=== PATIENT | female | born 1950 | race Caucasian/White ===

== ENCOUNTER 2024-02-27 11:30 | Emergency (ER) | payer BC, MEDICAID ==
[~2024-02-27] VITALS: Ht 157.5 cm; Wt 75.6 kg
[~2024-02-27 11:30] MED LIST: ACET-3209 PO; CYCL-1 PO; HYDR-3194 PO; PER5325T PO; PROM25TA14 PO
[2024-02-27 12:31] LABS: BASOPHILS % (AUTO) 0.1 % (0-1); EOSINOPHILS % (AUTO) 0.4 % (0-6); HEMATOCRIT 36.5 % (35.0-45.0); HEMOGLOBIN 11.9 g/dl (12.0-16.0); LYMPHOCYTES # (AUTO) 1.1 X10'3 (1.1-4.8); LYMPHOCYTES % (AUTO) 10.6 % (21-51); MEAN CORPUSCULAR HEMOGLOBIN 28.5 PG (27.0-31.0); MEAN CORPUSCULAR HGB CONC 32.5 g/dL (33.0-36.5); MEAN CORPUSCULAR VOLUME 87.6 FL (78-98); MEAN PLATELET VOLUME 9.5 FL (7.4-10.4); MONOCYTES # (AUTO) 0.7 X10'3 (0-0.9); MONOCYTES % (AUTO) 6.6 % (2-12); NEUTROPHILS # (AUTO) 8.4 X10'3 (1.8-7.7); NEUTROPHILS % (AUTO) 82.3 % (42-75); PLATELET COUNT 265 X10'3 (140-440); RED BLOOD COUNT 4.17 X10'6 (4.20-5.60); RED CELL DISTRIBUTION WIDTH 16.3 % (11.5-14.5); WHITE BLOOD COUNT 10.2 X10'3 (4.5-11.0)
[2024-02-27 12:56] LABS: ALBUMIN 3.4 G/DL (3.4-5.0); ANION GAP 9 (8-16); BLOOD UREA NITROGEN 11 MG/DL (7-18); BUN/CREATININE RATIO 9.4 (10.0-20.0); CALCIUM 8.7 MG/DL (8.5-10.1); CHLORIDE 99 MMOL/L (99-107); CREATININE 1.17 MG/DL (0.40-0.90); GLUCOSE 121 MG/DL (70-104); PRO BRAIN NATRIURETIC PEPTIDE 380 PG/ML (0-125); SODIUM 132 MMOL/L (135-145); TOTAL CARBON DIOXIDE 23.8 MMOL/L (24-32); eCRCL 33 ML/MIN; eGFR 45 ML/MIN
[2024-02-27 14:03] VITALS: TEMP 98.7
[2024-02-27] MEDS: albuterol 2.5 MG/3 ML nebule NEB ONE (14:25)
[2024-02-27 16:07] VITALS: PULSE 97; PULSE 98; RESP 20; RESP 22; O2SAT 98
[2024-02-27] MEDS ORDERED: METH4TAB81 PO (16:40)
[2024-02-27] MEDS ORDERED: GUAI1TBM19 PO (16:40)
[2024-02-27 16:45] VITALS: BP 137/82; PULSE 93; RESP 16; O2SAT 97
== END 2024-02-27 16:48 | disposition home or self-care (01) ==
LOC: ER 11:31
DX: J44.1 Chronic obstructive pulmonary disease with (acute) exacerbation (principal); E78.00 Pure hypercholesterolemia, unspecified; M19.90 Unspecified osteoarthritis, unspecified site; G89.29 Other chronic pain; M54.9 Dorsalgia, unspecified; G43.909 Migraine, unspecified, not intractable, without status migrainosus; Z86.73 Personal history of transient ischemic attack (TIA), and cerebral infarction without residual deficits; Z87.891 Personal history of nicotine dependence; Z90.710 Acquired absence of both cervix and uterus; Z90.49 Acquired absence of other specified parts of digestive tract; Z20.822 Contact with and (suspected) exposure to COVID-19; Z88.8 Allergy status to other drugs, medicaments and biological substances; Z79.1 Long term (current) use of non-steroidal anti-inflammatories (NSAID)
CPT/HCPCS: 36415; 71046; 80048; 83605; 83880; 84484; 85025; 87040; 87502; 87503; 87811; 93005; 94640; 94760; 99285

== ENCOUNTER 2024-04-17 13:43 | Emergency (ER) | payer BC, MEDICAID ==
[~2024-04-17] VITALS: Ht 157.5 cm; Wt 75.0 kg
[~2024-04-17 13:43] MED LIST changes: +GUAI1TBM19 PO; +METH4TAB81 PO
[2024-04-17 14:01] VITALS: BP 126/101; PULSE 78; TEMP 97.8; O2SAT 96
[2024-04-17] MEDS ORDERED: LIDO700A32 TOP (16:00)
[2024-04-17 16:21] VITALS: RESP 16
[2024-04-17] MEDS: morphine 4 MG/ML inj SYRINge IM ONE (16:21)
== END 2024-04-17 16:26 | disposition home or self-care (01) ==
LOC: ER 13:44
DX: S46.912A Strain of unspecified muscle, fascia and tendon at shoulder and upper arm level, left arm, initial encounter (principal); M77.8 Other enthesopathies, not elsewhere classified; E78.00 Pure hypercholesterolemia, unspecified; J44.9 Chronic obstructive pulmonary disease, unspecified; M19.90 Unspecified osteoarthritis, unspecified site; G43.909 Migraine, unspecified, not intractable, without status migrainosus; G89.29 Other chronic pain; M54.9 Dorsalgia, unspecified; Z90.710 Acquired absence of both cervix and uterus; Z90.49 Acquired absence of other specified parts of digestive tract; Z86.73 Personal history of transient ischemic attack (TIA), and cerebral infarction without residual deficits; Z88.6 Allergy status to analgesic agent; Z88.8 Allergy status to other drugs, medicaments and biological substances; Z79.1 Long term (current) use of non-steroidal anti-inflammatories (NSAID); Z79.899 Other long term (current) drug therapy; Z98.890 Other specified postprocedural states; X58.XXXA Exposure to other specified factors, initial encounter; Y93.89 Activity, other specified; Y92.89 Other specified places as the place of occurrence of the external cause; Y99.8 Other external cause status
CPT/HCPCS: 73030; 96372; 99283; J2270

== ENCOUNTER 2024-07-19 05:56 | Emergency (ER) | payer BC, MEDICAID ==
[~2024-07-19] VITALS: Ht 157.5 cm; Wt 76.1 kg
[~2024-07-19 05:56] MED LIST changes: +LIDO700A32 TOP
[2024-07-19 05:58] VITALS: TEMP 97.6
[2024-07-19 06:53] LABS: BASOPHILS % (AUTO) 0.3 % (0-1); EOSINOPHILS # (AUTO) 0.2 X10'3 (0-0.9); EOSINOPHILS % (AUTO) 2.4 % (0-6); HEMATOCRIT 35.1 % (35.0-45.0); HEMOGLOBIN 11.9 g/dl (12.0-16.0); LYMPHOCYTES % (AUTO) 25.5 % (21-51); MEAN CORPUSCULAR HEMOGLOBIN 29.7 PG (27.0-31.0); MEAN CORPUSCULAR HGB CONC 33.9 g/dL (33.0-36.5); MEAN CORPUSCULAR VOLUME 87.4 FL (78-98); MEAN PLATELET VOLUME 9.2 FL (7.4-10.4); MONOCYTES # (AUTO) 0.7 X10'3 (0-0.9); MONOCYTES % (AUTO) 9.1 % (2-12); NEUTROPHILS # (AUTO) 4.9 X10'3 (1.8-7.7); NEUTROPHILS % (AUTO) 62.7 % (42-75); PLATELET COUNT 261 X10'3 (140-440); RED BLOOD COUNT 4.01 X10'6 (4.20-5.60); RED CELL DISTRIBUTION WIDTH 16.2 % (11.5-14.5); WHITE BLOOD COUNT 7.9 X10'3 (4.5-11.0)
[2024-07-19 07:03] LABS: BILIRUBIN,URINE NEGATIVE (Neg); CLARITY,URINE CLEAR (Clear); COLOR,URINE YELLOW (Yellow); GLUCOSE, URINE NEGATIVE (Neg); KETONES,URINE NEGATIVE (Neg); LEUKOCYTE ESTERASE ,URINE NEGATIVE (Neg); NITRITES, URINE NEGATIVE (Neg); OCCULT BLOOD,URINE NEGATIVE (Neg); PROTEIN,URINE NEGATIVE (Neg); UROBILINOGEN,URINE 0.2 E.U/dL (0.2-1.0)
[2024-07-19 07:10] LABS: ALANINE AMINOTRANSFERASE 15 U/L (12-78); ALBUMIN 3.2 G/DL (3.4-5.0); ALBUMIN/GLOBULIN RATIO 0.9 (1.1-1.5); ALKALINE PHOSPHATASE 77 IU/L (46-116); ANION GAP 6 (8-16); ASPARTATE AMINO TRANSFERASE 15 U/L (10-37); BILIRUBIN,TOTAL 0.5 MG/DL (0.1-1.0); BLOOD UREA NITROGEN 12 MG/DL (7-18); BUN/CREATININE RATIO 10.6 (10.0-20.0); CALCIUM 8.7 MG/DL (8.5-10.1); CHLORIDE 103 MMOL/L (99-107); CREATININE 1.13 MG/DL (0.40-0.90); GLUCOSE 91 MG/DL (70-104); POTASSIUM 4.4 MMOL/L (3.5-5.1); SODIUM 136 MMOL/L (135-145); TOTAL CARBON DIOXIDE 26.9 MMOL/L (24-32); TOTAL PROTEIN 6.6 G/DL (6.4-8.2); eCRCL 35 ML/MIN; eGFR 47 ML/MIN
--- NOTE | 2024-07-19 07:17 | RADIOLOGY REPORT ---
EXAM: CT Abdomen and Pelvis Without Intravenous Contrast CLINICAL INDICATION: R flank pain TECHNIQUE: Axial computed tomography images of the abdomen and pelvis without intravenous contrast. This CT exam was performed using one or more of the following dose reduction techniques: automated exposure control, adjustment of the mA and/or kV according to patient size, and/or use of iterative r econstruction technique. CONTRAST: COMPARISON: None FINDINGS: LUNG BASES: Unremarkable. No mass. No consolidation. MEDIASTINUM: Moderate esophageal hiatal hernia. ABDOMEN: LIVER: Hepatic cysts. GALLBLADDER AND BILE DUCTS: Unremarkable. No calcified stones. No ductal dilation. PANCREAS: Unremarkable. No ductal dilation. SPLEEN: Unremarkable. No splenomegaly. ADRENALS: Unremarkable. No mass. KIDNEYS AND URETERS: Right nephrectomy. STOMACH AND BOWEL: Fecal retention in the colon consistent with constipation. No obstruction. No mucosal thickening. PELVIS: APPENDIX: No findings to suggest acute appendicitis. BLADDER: Unremarkable. No stones. REPRODUCTIVE: Unremarkable as visualized. ABDOMEN and PELVIS: INTRAPERITONEAL SPACE: Unremarkable. No free air. No significant fluid collection. BONES/JOINTS: Status post posterior fusion of L2 to S1. 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 Degenerative facet arthropathy throughout the lumbar spine, most prominent in the lower lumbar spine. No acute fracture. No dislocation. SOFT TISSUES: Umbilical hernia containing fat. VASCULATURE: Unremarkable. No abdominal aortic aneurysm. LYMPH NODES: Unremarkable. No enlarged lymph nodes. OTHER FINDINGS: . . . IMPRESSION: 1. Moderate esophageal hiatal hernia. 2. Fecal retention in the colon consistent with constipation. 3. Umbilical hernia containing fat. 4. Degenerative changes lumbar spine as described.
[2024-07-19 07:24] LABS: UA COLLECTION TYPE NON-SPECIFIED
--- NOTE | 2024-07-19 07:33 | Physician Documentation ---
History of Present Illness Chief Complaint: Flank Pain Stated Complaint: FLANK PAIN Time Seen by MD: 06:00 [facility] 73 [facility] with R Flank and RLQ pain that started this morning. She denies fevers, N/V/D. She reports a history of a kidney tumor with nephrostomy but she cannot remember which kidney was removed. She reports recent constipation for several days. Denies urinary symptoms. Medication Reconciliation Allergies: Coded Allergies: propoxyphene HCl (Verified Allergy, Intermediate, DIZZY, SLEEPY, 07/19/24) ibuprofen (Verified Allergy, Unknown, 07/19/24) Scheduled Acetaminophen (Tylenol), 650 MG PO Q6H, (Reported) Guaifenesin/Dextromethorphan (Mucinex Dm ER 1,200-60 mg Tab), 1 TAB PO Q12H Hydrocodone Bit/Acetaminophen (Hydrocodon-Acetaminophen 5-300), 1 EACH PO Q4H Lidocaine (Lidoderm), 1 PATCH TOP DAILY Methylprednisolone (Medrol Dosepak), 0 PO UD Oxycodone Hcl/Acetaminophen 5/325 MG* (Percocet 5/325 MG*), 1 TAB PO TID, (Reported) Promethazine HCl (Promethazine HCl), 25 MG PO BID Scheduled PRN Cyclobenzaprine* (Cyclobenzaprine*), 1 TABLET PO Q8H PRN for muscle spasms Past Medical History Past Medical History: CVA/TIA/Stroke, Migraine, High Cholesterol, COPD, Renal Disease, Arthritis, Chronic Back Pain Past Surgical History: appendectomy, , hysterectomy, orthopedic surgeries, other Alcohol Use: None Drug Use: none Lives with: Spouse Lives In: Home Occupation: retired Review of Systems All Other Systems at this time: Reviewed and Negative Physical Exam Vital Signs: RN Vital Signs have been reviewed: Yes, Temperature: 97.6, Source: Oral, Heart Rate: 88, Respiratory Rate: 18, BP: 128/90, Pulse Oximetry: 94, Weight: 76.100 Physical Exam HEENT: PERRL, moist oral mucosa, EOMI GI: nondistended, soft, nontender, no guarding, no rebound MSK: no deformity Skin: w/d/i, no rash Neuro: alert, nonfocal Psych: normal affect Progress Results/Orders Results/Orders Orders - MAGDIEL YUN MD Ct Abdomen Pelvis (07/19/24 06:21) Magnesium Citrate Oral Tiarra. (Magnesium C (07/19/24 07:30) Completed Orders - MAGDIEL YUN MD Cbc/Diff (07/19/24 06:21) CMP (07/19/24 06:21) Urinalysis, Cult If Indicated (07/19/24 06:21) Ct Abdomen Pelvis (07/19/24 06:21) Vital Signs 07/19/24 07/19/24 05:58 06:08 Temp 97.6 Pulse 88 Resp 18 B/P (MAP) 128/90 Pulse Ox 94 Laboratory Tests Test 07/19/24 06:24 07/19/24 06:35 Urine Specimen Description Non-specified Urine Color Yellow Urine Clarity Clear Urine pH 6.0 Urine Specific [place] <=1.005 Urine Protein Negative Urine Glucose (UA) Negative Urine Ketones Negative Urine Occult Blood Negative Urine Nitrite Negative Urine Bilirubin Negative Urine Urobilinogen 0.2 Urine Leukocyte Esterase Negative Urine Culture Indicated Not ind Volume Urine Centrifuged 10 ml Urine Comment White Blood Count 7.9 Red Blood Count 4.01 L Hemoglobin 11.9 L Hematocrit 35.1 Mean Corpuscular Volume 87.4 Mean Corpuscular Hemoglobin 29.7 Mean Corpuscular Hemoglobin Concent 33.9 Red Cell Distribution Width 16.2 H Platelet Count 261 Mean Platelet Volume 9.2 Neutrophils (%) (Auto) 62.7 Lymphocytes (%) (Auto) 25.5 Monocytes (%) (Auto) 9.1 Eosinophils (%) (Auto) 2.4 Basophils (%) (Auto) 0.3 Neutrophils # (Auto) 4.9 Lymphocytes # (Auto) 2.0 Monocytes # (Auto) 0.7 Eosinophils # (Auto) 0.2 Basophils # (Auto) 0.0 CBC Comment Sodium Level 136 Potassium Level 4.4 Chloride Level 103 Carbon Dioxide Level 26.9 Anion Gap 6 L Blood Urea Nitrogen 12 Creatinine 1.13 H Estimated GFR/1.73 m2 47 BUN/Creatinine Ratio 10.6 Glucose Level 91 Calcium Level 8.7 Total Bilirubin 0.5 Aspartate Amino Transf (AST/SGOT) 15 Alanine Aminotransferase (ALT/SGPT) 15 Alkaline Phosphatase 77 Total Protein 6.6 Albumin 3.2 L Globulin 3.4 Albumin/Globulin Ratio 0.9 L Chemistry Comments EKG/XRAY/CT/US/VASC/MRI CT : Interpreted By: self CT: abdomen/pelvis With Contrast?: No Impression My interpretation: s/p R nephrectomy, moderate hiatal hernia, and constipation Medical Decision Making Findings 73 year old female with R sided flank/RLQ abdominal pain. Stable vitals and benign exam. Workup was consistent with constipation as cause of her symptoms. Will discharge with mag citrate to take at home. Return precautions and discharged into care of family at bedside. Differential Dx:Considerations: Include: Appendicitis, Bowel obstruction, Constipation, Esophageal rupture, Ischemic bowel, Ovarian cyst/torsion, Urinary tract infection, Urolithiasis Departure Disposition: 01 HOME / SELF CARE / HOMELESS Impression: Primary Impression: Constipation Condition: Stable Discharge Instructions: Constipation, Adult Referrals: NO PRIMARY CARE PROVIDER (PCP) Education Educated: Patient, Family Educated regarding: diagnosis, treatment, prognosis, need for follow up Signature Scribe Signature: . Attestation: . MAGDIEL YUN MD Jul 19, 2024 07:33
[2024-07-19] MEDS: magnesium citrate 296ml oral solution PO ONE (07:42)
[2024-07-19 08:15] VITALS: BP 118/53; PULSE 94; RESP 18; O2SAT 97
== END 2024-07-19 08:23 | disposition home or self-care (01) ==
LOC: ER 05:57
DX: K59.00 Constipation, unspecified (principal); E78.00 Pure hypercholesterolemia, unspecified; J44.9 Chronic obstructive pulmonary disease, unspecified; M19.90 Unspecified osteoarthritis, unspecified site; G43.909 Migraine, unspecified, not intractable, without status migrainosus; G89.29 Other chronic pain; M54.9 Dorsalgia, unspecified; Z90.710 Acquired absence of both cervix and uterus; Z90.49 Acquired absence of other specified parts of digestive tract; Z86.73 Personal history of transient ischemic attack (TIA), and cerebral infarction without residual deficits; Z88.6 Allergy status to analgesic agent; Z79.899 Other long term (current) drug therapy
CPT/HCPCS: 36415; 74176; 80053; 81003; 85025; 99284

== ENCOUNTER 2024-08-13 09:23 | Emergency (ER) | payer BC, MEDICAID ==
[~2024-08-13] VITALS: Ht 157.5 cm; Wt 77.7 kg
[2024-08-13 09:39] VITALS: BP 132/88; PULSE 83; TEMP 98.3
[2024-08-13 09:45] VITALS: O2SAT 97
[2024-08-13] MEDS: morphine 4 MG/ML inj SYRINge IV ONE (09:55)
--- NOTE | 2024-08-13 09:55 | Physician Documentation ---
History of Present Illness ~ Chief Complaint: Chest Wall Pain Stated Complaint: RIB PAIN Time Seen by MD: 09:30 Primary Medical Doctor: [facility] This is a 73-year-old female who tripped over at four days ago, had fallen on the left side of her chest wall and since then complaint of the left-sided chest wall pain, worse with inspiration. Palliated by position of comfort. [place] as fallen are not helping. Pain is moderate at rest, 10 10 the deep inspiration. Denies any other. . Smokes Tetanus within 5 Years?: Yes Allergies: Coded Allergies: propoxyphene HCl (Verified Allergy, Intermediate, DIZZY, SLEEPY, 07/19/24) ibuprofen (Verified Allergy, Unknown, 07/19/24) Active Prescriptions See Medication Reconciliation Form. Medication Reconciliation Scheduled Acetaminophen (Tylenol), 650 MG PO Q6H, (Reported) Guaifenesin/Dextromethorphan (Mucinex Dm ER 1,200-60 mg Tab), 1 TAB PO Q12H Hydrocodone Bit/Acetaminophen (Hydrocodon-Acetaminophen 5-300), 1 EACH PO Q4H Lidocaine (Lidoderm), 1 PATCH TOP DAILY Methylprednisolone (Medrol Dosepak), 0 PO UD Oxycodone Hcl/Acetaminophen 5/325 MG* (Percocet 5/325 MG*), 1 TAB PO TID, (Reported) Promethazine HCl (Promethazine HCl), 25 MG PO BID Scheduled PRN Cyclobenzaprine* (Cyclobenzaprine*), 1 TABLET PO Q8H PRN for muscle spasms Past Medical History Past Medical History: CVA/TIA/Stroke, Migraine, High Cholesterol, COPD, Renal Disease, Arthritis, Chronic Back Pain Past Surgical History: appendectomy, , hysterectomy, orthopedic surgeries, other Alcohol Use: None Drug Use: none Lives with: Spouse Lives In: Home Occupation: retired Review of Systems ROS 10 point review of systems was performed and unless noted above in HPI is negative for acute process/complaint. Physical Exam Vital Signs: Temperature: 98.3, Source: Oral, Heart Rate: 83, Respiratory Rate: 16, BP: 132/88, Pulse Oximetry: 97, Weight: 77.730 Physical Exam GENERAL: Awake, alert, oriented, GCS 15, no apparent distress, non-toxic appearing, answers questions, follows commands appropriately. HEENT: Atraumatic, normocephalic, pupils equal, extraocular muscles intact, sclerae anicteric, mucus membranes moist, oropharynx is clear, no stridor. NECK: supple, full active range of motion, trachea midline, no thyromegaly, no lymphadenopathy, no JVD. CARDIOVASCULAR: regular rate/rhythm, no murmurs/gallops/rubs, Pulses are 2+ in all extremities and symmetric. Capillary refill less than 2 seconds. PULMONARY: Nonlabored, good air movement ,no respiratory distress, speaking in full sentences, coarse breath sounds bilaterally, no wheezing, no ronchi, no rales, no accessory muscle use. GASTROINTESTINAL: Soft, non-tender, non-distended, normal active bowel sounds, no organomegaly, no pulsatile masses, no CVA tenderness. NEUROLOGIC: Lucid with normal mental status. Normal facial symmetry. Moves all extremities symmetrically and with purpose. No truncal ataxia. Speech is fluid without evidence of dysarthria or aphasia, no focal deficits appreciated. MUSCULOSKELETAL: There is full range of motion of all extremities. There is no joint pain or joint swelling or joint erythema. There is no muscle pain or tenderness or swelling. EXTREMITIES: warm, well-perfused, no cyanosis, no clubbing, no edema, no acute deformities. Skin: warm, dry, no rashes or lesions, no jaundice, no petechiae orpurpura. No ecchymosis. PSYCHIATRIC: Normal affect, normal insight, normal concentration. Focused exam: [Left lateral chest wall tenderness to palpation reproducing chief complaint] Progress Results/Orders Results/Orders Orders - HEVER CURIEL DO Ct Chest (08/13/24 09:57) Ct Head (08/13/24 09:57) Ct Cervical Spine (08/13/24 09:57) * Incentive Spirometer/Resp * (08/13/24 09:48) Hs Troponin I W Calculations (08/13/24 11:49) Completed Orders - HEVER CUIREL DO Ct Chest (08/13/24 09:57) Ct Head (08/13/24 09:57) Ct Cervical Spine (08/13/24 09:57) Hydrocodone/Apap 5/325mg Tab ([place] 5/32 (08/13/24 09:35) Electrocardiogram (08/13/24 09:49) Cbc/Diff (08/13/24 09:49) MG (08/13/24 09:49) CMP (08/13/24 09:49) Hs Troponin I W Calculations (08/13/24 09:49) Morphine 4mg/Ml Inj. (Morphine Inj.) (08/13/24 09:55) Medications Received in ER Medications (Trade) Dose Ordered Sig/Pia Route PRN Reason Start Time Stop Time Status Last Admin Dose Admin ([place] 5/325mg tablet) 1 tab ONCE ONCE PO 08/13/24 09:35 08/13/24 09:36 DC 08/13/24 10:11 1 TAB Vital Signs 08/13/24 08/13/24 08/13/24 09:39 09:45 10:11 Temp 98.3 Pulse 83 Resp 16 17 B/P (MAP) 132/88 Pulse Ox 97 97 O2 Delivery Room Air* O2 Flow Rate 0 FiO2 N/A Laboratory Tests Test 08/13/24 10:06 White Blood Count 4.7 Red Blood Count 3.83 L Hemoglobin 11.3 L Hematocrit 33.6 L Mean Corpuscular Volume 87.9 Mean Corpuscular Hemoglobin 29.5 Mean Corpuscular Hemoglobin Concent 33.6 Red Cell Distribution Width 17.0 H Platelet Count 192 Mean Platelet Volume 9.1 Neutrophils (%) (Auto) 63.7 Lymphocytes (%) (Auto) 24.3 Monocytes (%) (Auto) 8.5 Eosinophils (%) (Auto) 3.3 Basophils (%) (Auto) 0.2 Neutrophils # (Auto) 3.0 Lymphocytes # (Auto) 1.2 Monocytes # (Auto) 0.4 Eosinophils # (Auto) 0.2 Basophils # (Auto) 0.0 CBC Comment Sodium Level 136 Potassium Level 4.6 Chloride Level 102 Carbon Dioxide Level 26.3 Anion Gap 8 Blood Urea Nitrogen 14 Creatinine 1.28 H Estimated GFR/1.73 m2 41 BUN/Creatinine Ratio 10.9 Glucose Level 95 Calcium Level 8.9 Magnesium Level 1.6 Total Bilirubin 0.4 Aspartate Amino Transf (AST/SGOT) 18 Alanine Aminotransferase (ALT/SGPT) 19 Alkaline Phosphatase 75 Troponin I High Sensitivity 7 Total Protein 5.9 L Albumin 3.1 L Globulin 2.8 Albumin/Globulin Ratio 1.1 Chemistry Comments Medical Decision Making Findings Facility Status: ED Holds, RME process The plan was discussed with the patient, who demonstrates clear understanding of the plan and is in agreement with the plan unless otherwise noted in the chart. All questions have been answered, all concerns were addressed unless otherwise documented. I was available throughout their ED stay for frequent reassessment and questions. Differential Diagnoses (considered and possible or likely): [Rib contusion, rib fracture, pulmonary contusion, cardiac contusion, unlikely ACS] ??Differential Diagnoses (considered and unlikely, not requiring evaluation currently): [See above] MDM Data Please see [facility] for the following: Independent Historians and external Records Review. Historian: [Patient] Independent Historians: ?[EMS] Medication Management: [Reviewed medication list] Social History and determinants: [Reviewed] Please see the body of the note for the following: Any independent interpretations of ECG, imaging studies. All vitals signs/haemodynamics, ordered tests were independently reviewed and interpreted by myself. Nursing triage complaint and vitals reviewed, additional nursing notes were r eviewed as available and I agree unless otherwise noted or documented in contradiction in the chart Vital Signs: Independently reviewed Labs: Independently interpreted Imaging: Independently interpreted Old Medical Records: Independently reviewed, see [facility] for relevant summary and information Pulse Oximetry: [97%] interpreted as [normal on room air] by me [Tablet Technician: [Regular Rate, Regular rhythm, no ectopy, NSR] reviewed and interpreted by me] Additionally notably showing: [Hemodynamics were reviewed. The patient's vital signs are unremarkable, no evidence of tachycardic, hypotension, respiratory distress.. Laboratory studies reviewed. CBC normal metabolic panel notable for chronic kidney disease with a creatinine of 1.28. Troponin is negative. Imaging was obtained. CT head shows no acute intracranial abnormality. CT cervical spine shows no fracture or subluxation. CT of the chest shows no acute traumatic injury. Incidental finding of 1.1 spiculated right upper lobe nodule concerning for malignancy. Patient will need a biopsy.] Tests considered but not ordered include: [PET scan, biopsy can be done on an outpatient basis] Social Determinants of Health Impact: Patient was evaluated in [facility] [place] to healthcare due to below par ratio of patient to medical providers. [] Comorbid Conditions Impacting Present Evaluation and Care/Treatment: [None reported by the patient] Management Discussions with other Healthcare Providers: [None] Treatment and Disposition Medication Management (Given or considered): []. See EMR for details Consideration for Hospitalization/Escalation/Deescalation of Care: Admission for observation has been considered, [however the patient is able to tolerate p.o., their symptoms are controlled, they are able to rely on oral medications, and their chief complaint/diagnosis can be managed on outpatient basis.] ?ED Course:?[Discussed the concerning finding of the lung nodule.] ?Shared decision making:?[Patient is hemodynamically stable for discharge home with follow with their primary care provider. [ ] Specific and cautious return precautions provided and discussed with full understanding. Any incidental findings were also discussed and follow up recommendations given. [] All questions answered. Patient/family were able to verbalize back return precautions. Patient/family agree to plan. Copies of imaging and laboratory studies were provided.] Code status:?FULL Please see the full Electronic Medical Record for full details of nursing documentation, medications list, other records of complete past medical history and conditions, vital signs, laboratory studies, and any radiologic study interpretations by radiologists. Portions of this note were completed using Medop[employer] dictation software and as a result there may exist minor errors in spelling. I have reviewed elements of past family and social history and agree as included in note. Departure Disposition: 01 HOME / SELF CARE / HOMELESS Impression: Primary Impression: Chest wall pain Additional Impressions: Ground-level fall Acute traumatic pain Rib contusion Lung nodule seen on imaging study Condition: Improved Discharge Instructions: Chest Wall Pain Additional Instructions: As we have discussed, you have a spiculated nodule on your CT. This is concerning for cancer. Please make sure to follow-up, misdiagnosis of cancer can result in anatomic with . You will need a PET scan and biopsy. Referrals: NO PRIMARY CARE PROVIDER (PCP) Education Educated: Patient, Family Educated regarding: diagnosis, treatment, prognosis, need for follow up Signature Scribe Signature: No scribe Attestation: This note accurately reflects clinical decisions, work performed by myself, DO VEENA Fuentes NICHOLAS M DO August 13, 2024 09:55
--- NOTE | 2024-08-13 10:10 | RADIOLOGY REPORT ---
CT CT HEAD INDICATION: fall, pain EXAM DATE: 08/13/2024 09:50 AM COMPARISON: None RADIATION DOSE: CTDIvol: 52 mGy, DLP: 1160 mGy*cm PROCEDURE: CT scans of the head were obtained from the vertex to the skull base. Sagittal and coronal reconstructions were provided. All CT scans at this medical facility are performed using dose modulation techniques as appropriate t o a performed exam including the following: Automated exposure control was utilized; adjustment of th e MA and/or KV according to patient size; and use of iterative reconstruction technique. FINDINGS: There is sulcal and ventricular prominence. The brainshows normal morphology and lazo-whi te matter differentiation, without intracranial hemorrhage, extra-axial fluid collection, mass effect or acute large vessel infarct. The ventricles are normal in size. The basal cisterns are patent. The skull and visible facial bones are intact. The paranasal sinuses, mastoid air cells and middle ear c avities are well-aerated. The soft tissues of the scalp are unremarkable. IMPRESSION: No acute intracranial abnormality.
--- NOTE | 2024-08-13 10:10 | ELECTROCARDIOGRAPH REPORT ---
[facility] Test Date: 2024-08-13 Test Time: 10:07:56 Pat Name: EMMA COLVIN Department: [facility] Patient ID: [facility]-[id number] Room: Gender: F Reel [employer] Operator: : 1950 Requested By: HEVER CURIEL Order Number: [id number] Reading MD: Dr. Nito Mon Measurements Intervals [place] Rate: 76 P: 31 VA: 136 QRS: 24 QRSD: 99 T: 54 QT: 391 QTc: 440 Interpretive Statements Sinus rhythm Electronically Signed On 08-14-2024 17:54:[address] Nito Mon Please click the below link to view image of tracing.
[2024-08-13 10:11] VITALS: RESP 17
[2024-08-13] MEDS: HYDROcodone/acetaminophen 5mg/325mg tablet PO ONE (10:11)
--- NOTE | 2024-08-13 10:11 | RADIOLOGY REPORT ---
EXAM: CT CT CERVICAL SPINE INDICATION: fall, pain EXAM DATE: 08/13/2024 09:48 AM COMPARISON: None TECHNIQUE: Multiple axial CT images of the cervical spine were obtained using bone algorithm. Axial a nd coronal reformatting was done. Bone and soft tissue windows were reviewed. Radiation Dose Information: CT Dose: CTDI volume is 23.2 mGy. Dose-length product is 483.3 mGy*cm FINDINGS: The cervical alignment is intact. No acute cervical spine fracture is identified. The vertebral body heights are intact. No suspicious osseous lesions are identified. Multilevel intervertebral disc space narrowing. No significant spinal stenosis. Multilevel neural f oraminal stenosis. Multilevel facet arthropathy. There is no prevertebral soft tissue swelling. Emphysema in the lung apices. IMPRESSION: 1. No evidence of acute cervical spine fracture or traumatic malalignment. 2. Multilevel cervical spondylosis. 3. Emphysema in the lung apices. All CT scans at this medical facility are performed using dose modulation techniques as appropriate t o a performed exam including the following: Automated exposure control was utilized; adjustment of th e MA and/or KV according to patient size; and use of iterative reconstruction technique.
[2024-08-13 10:24] LABS: EOSINOPHILS # (AUTO) 0.2 X10'3 (0-0.9); LYMPHOCYTES # (AUTO) 1.2 X10'3 (1.1-4.8); MONOCYTES # (AUTO) 0.4 X10'3 (0-0.9); MONOCYTES % (AUTO) 8.5 % (2-12); WHITE BLOOD COUNT 4.7 X10'3 (4.5-11.0)
[2024-08-13 10:26] LABS: BASOPHILS % (AUTO) 0.2 % (0-1); EOSINOPHILS % (AUTO) 3.3 % (0-6); HEMATOCRIT 33.6 % (35.0-45.0); HEMOGLOBIN 11.3 g/dl (12.0-16.0); LYMPHOCYTES % (AUTO) 24.3 % (21-51); MEAN CORPUSCULAR HEMOGLOBIN 29.5 PG (27.0-31.0); MEAN CORPUSCULAR HGB CONC 33.6 g/dL (33.0-36.5); MEAN CORPUSCULAR VOLUME 87.9 FL (78-98); MEAN PLATELET VOLUME 9.1 FL (7.4-10.4); NEUTROPHILS % (AUTO) 63.7 % (42-75); PLATELET COUNT 192 X10'3 (140-440); RED BLOOD COUNT 3.83 X10'6 (4.20-5.60)
--- NOTE | 2024-08-13 10:33 | RADIOLOGY REPORT ---
PROCEDURE: CT CT CHEST 08/13/2024 09:53 AM INDICATION: fall, L chest wall pain COMPARISON: None TECHNIQUE: Coverage: Thorax IV contrast: None All CT scans at this medical facility are performed using dose modulation techniques as appropriate t o a performed exam including the following: Automated exposure control was utilized; adjustment of th e MA and/or KV according to patient size; and use of iterative reconstruction technique. Radiation dose: CTDIvol 16.4 mGy, DLP 566 mGy*cm. FINDINGS: Cardiovascular: Aorta is normal in caliber. Mild atherosclerotic calcification of the aortic arch not ed. The heart is normal in size. Mild coronary artery calcification. Moderate-sized sliding hiatal h ernia. The esophagus is moderately gas distended but without mural thickening. Lungs: Mild biapical emphysematous changes noted. No lobar consolidation. A 1.1 cm spiculated nodule is noted in the anterior segment of the right upper lobe, axial image 25. No pleural effusion. No pn eumothorax. The airways are patent. Thyroid: Unremarkable. Lymphatics: No hilar or mediastinal lymphadenopathy. Bones/soft tissues: No acute abnormality. Multilevel degenerative changes of the thoracic spine are n oted. Upper abdomen: No acute abnormality. Surgical clips are noted in the right upper quadrant retroperito anh region likely related to right nephrectomy. Few stable subcentimeter hypodense hepatic lesions, too small to characterize but probably benign cyst. Other: None. IMPRESSION: 1. No acute traumatic injury noted in the chest. No acute fracture or pneumothorax. 2. A 1.1 cm spiculated nodule in the right upper lobe concerning for primary or metastatic malignancy . Recommend further evaluation with PET-CT scan or biopsy.
[2024-08-13 10:34] LABS: ALANINE AMINOTRANSFERASE 19 U/L (12-78); ALBUMIN 3.1 G/DL (3.4-5.0); ALBUMIN/GLOBULIN RATIO 1.1 (1.1-1.5); ALKALINE PHOSPHATASE 75 IU/L (46-116); ANION GAP 8 (8-16); ASPARTATE AMINO TRANSFERASE 18 U/L (10-37); BILIRUBIN,TOTAL 0.4 MG/DL (0.1-1.0); BLOOD UREA NITROGEN 14 MG/DL (7-18); BUN/CREATININE RATIO 10.9 (10.0-20.0); CALCIUM 8.9 MG/DL (8.5-10.1); CHLORIDE 102 MMOL/L (99-107); CREATININE 1.28 MG/DL (0.40-0.90); GLUCOSE 95 MG/DL (70-104); MAGNESIUM 1.6 MG/DL (1.5-2.4); POTASSIUM 4.6 MMOL/L (3.5-5.1); SODIUM 136 MMOL/L (135-145); TOTAL CARBON DIOXIDE 26.3 MMOL/L (24-32); TOTAL PROTEIN 5.9 G/DL (6.4-8.2); eCRCL 31 ML/MIN; eGFR 41 ML/MIN
== END 2024-08-13 13:00 | disposition home or self-care (01) ==
LOC: ER 09:24
DX: S20.219A Contusion of unspecified front wall of thorax, initial encounter (principal); G89.11 Acute pain due to trauma; Z86.73 Personal history of transient ischemic attack (TIA), and cerebral infarction without residual deficits; J44.9 Chronic obstructive pulmonary disease, unspecified; F17.200 Nicotine dependence, unspecified, uncomplicated; E78.00 Pure hypercholesterolemia, unspecified; M19.90 Unspecified osteoarthritis, unspecified site; G43.909 Migraine, unspecified, not intractable, without status migrainosus; Z88.6 Allergy status to analgesic agent; Z90.49 Acquired absence of other specified parts of digestive tract; Z90.710 Acquired absence of both cervix and uterus; W18.30XA Fall on same level, unspecified, initial encounter; Y93.89 Activity, other specified; Y92.89 Other specified places as the place of occurrence of the external cause; Y99.8 Other external cause status
CPT/HCPCS: 70450; 71250; 72125; 80053; 83735; 84484; 85025; 93005; 99284

== ENCOUNTER 2024-11-20 10:24 | Outpatient (CLI) | payer BC, MEDICAID ==
[~2024-11-20 10:24] MED LIST changes: -ACET-3209 PO; +AMIT25TA22 PO; +ATOR20TA66 PO; +CALC-1215 PO; -CYCL-1 PO; +FLUO40CA PO; -GUAI1TBM19 PO; -HYDR-3194 PO; +HYDR-3968 PO; -LIDO700A32 TOP; -METH4TAB81 PO; +OMEP20CA16 PO; -PER5325T PO; -PROM25TA14 PO; +UMEC1DIS PO
--- NOTE | 2024-11-20 11:44 | RADIOLOGY REPORT ---
DI CHEST,TWO VIEWS CLINICAL HISTORY: LUNG CANCER COMPARISON: DI CHEST,SINGLE VIEW on DOS: 11/12/24, DI CHEST,SINGLE VIEW on DOS: 11/11/24, DI CHEST,SING LE VIEW on DOS: 11/11/24, DI CHEST,SINGLE VIEW on DOS: 11/10/24, DI CHEST,SINGLE VIEW on DOS: 11/09/24 TECHNIQUE: Frontal and lateral view of the chest was obtained FINDINGS: Lines and Tubes: None Lungs: Right perihilar mass Pleura: No effusion. No pneumothorax. Cardiomediastinal contours: Unremarkable Bones: No acute osseous abnormality. IMPRESSION: Right perihilar mass
== END 2024-11-20 23:59 | disposition home or self-care (01) ==
LOC: RAD 10:24
PROVIDERS: ATTEND Family Medicine
DX: C34.91 Malignant neoplasm of unspecified part of right bronchus or lung (principal); R91.8 Other nonspecific abnormal finding of lung field
CPT/HCPCS: 71046

== ENCOUNTER 2024-12-11 15:32 | Outpatient (CLI) | payer BC, MEDICAID ==
[2024-12-11] MEDS ORDERED: GADOTERATE MEGLUMINE 7.5 MMOL/15 ML VIAL IV ONE (17:12)
--- NOTE | 2024-12-11 17:24 | RADIOLOGY REPORT ---
PROCEDURE: MR MRI HEAD Indication: LUNG CANCER COMPARISON: CT CT HEAD on DOS: 08/13/24 TECHNIQUE: Multiplanar multisequence images of the brain are obtained with and without contrast. FINDINGS: Examination degraded by motion. There is no abnormal diffusion restriction. [id number] periventricular and subcortical white matter T2 and FLAIR hyperintense changes. There is no intracranial hemorrhage. No extra-axial fluid collection, mass effect or midline shift. The ventricles are midline and normal in size. The cisterns are patent. Normal intracranial flow voids are preserved. No abnormal susceptibility signal. There is mild global cerebral volume loss No evidence for abnormal intracranial enhancement. There is decreased T1 signal within the C2 dens. There are bilateral mastoid effusions. Mucosal thickening of the ethmoids The visualized orbits are unremarkable. IMPRESSION: No acute cerebrovascular ischemia. No intracranial metastatic disease. Decreased T1 signal within the C2 dens could represent a metastatic lesion. Recommend MRI cervical spine with and without contrast. [id number] chronic microvascular ischemic changes. Bilateral mastoid effusions.
== END 2024-12-11 23:59 | disposition home or self-care (01) ==
LOC: MRI 15:32
PROVIDERS: ATTEND Family Medicine
DX: I67.89 Other cerebrovascular disease (principal); C34.90 Malignant neoplasm of unspecified part of unspecified bronchus or lung; H70.93 Unspecified mastoiditis, bilateral
CPT/HCPCS: 70553; A9575

== ENCOUNTER 2024-12-19 15:27 | Outpatient (CLI) | payer BC, MEDICAID ==
--- NOTE | 2024-12-19 19:04 | RADIOLOGY REPORT ---
EXAM: MR MRI C SPINE INDICATION: LUNG CANCER;NEHA SPOT ON SEC CERVICAL VERTEBRAE TECHNIQUE: Multiplanar, multisequence imaging of the cervical spine without contrast. Patient refused contrast. Examination was initially ordered as with and without COMPARISON: MR MRI HEAD on DOS: 12/11/24, CT cervical spine 07/2028 FINDINGS: [ANATOMY]: Straightening of the normal cervical lordosis, which may be seen in the setting of patient positioning versus muscular spasm. [BONES]: No endplate compression fracture. In regards to the clinical question, areas of sclerosis seen on prior CT cervical spine 07/2024 corresponding with low T1 signal, intermediate T2 signal without aggressive osseous features upon review of prior CT, surrounding soft tissue calcification and inconspicuous areas of possible osseous erosions within the atlanto dens interval narrowing. Recommend postcontrast imaging to provide more confidence in diagnosis, however if patient is not amenable, consider short-term imaging follow-up in 3-6-months to assess for interval change with MRI. Overall, consideration for crystalline deposition arthropathy and subsequent degenerative change and bony eburnation [CERVICAL CORD]: The cervical cord is normal in signal and morphology. [DISCS]: Diffuse disc desiccation. multilevel circumferential disc bulges with mild intervertebral disc height loss throughout the cervical spine [FACETS]: Minimal to mild multilevel facet arthropathy [OTHER]: There is no prevertebral soft tissue swelling. The visualized paraspinal soft tissues are normal. [C2-C3]: Unremarkable. [C3-C4]: Mild intervertebral disc height loss. Trace circumferential disc bulge [C4-C5]: Circumferential disc bulge. Trace effacement of the ventral thecal sac [C5-C6]: Intervertebral disc height loss. Trace disc bulge. Trace ligamentum flavum buckling. Effacement of the ventral and dorsal thecal sac [C6-C7]: Intervertebral disc height loss. Trace disc bulge. [C7-T1]: Unremarkable. IMPRESSION: 1. In regards to the clinical question, areas of sclerosis seen on prior CT cervical spine 07/2024 corresponding with low T1 signal, intermediate T2 signal without aggressive osseous features. 2. Upon review of prior CT, surrounding soft tissue calcification and inconspicuous areas of osseous erosions with atlanto dens interval narrowing 3. Recommend postcontrast imaging to provide more confidence in diagnosis, however if patient is not amenable, consider short-term imaging follow-up in 3-6-months to assess for interval change with MRI. 4. Overall, consideration for crystalline deposition arthropathy and subsequent degenerative change and bony eburnation. Less likely consideration for osseous metastasis in the setting of lung cancer given lung cancer metastasis are typically lytic. 5. Multilevel cervical spondylosis.
== END 2024-12-19 23:59 | disposition home or self-care (01) ==
LOC: MRI 15:27
PROVIDERS: ATTEND Family Medicine
DX: M47.812 Spondylosis without myelopathy or radiculopathy, cervical region (principal); M50.321 Other cervical disc degeneration at C4-C5 level; M50.81 Other cervical disc disorders, high cervical region; C34.90 Malignant neoplasm of unspecified part of unspecified bronchus or lung; M79.89 Other specified soft tissue disorders
CPT/HCPCS: 72141

== ENCOUNTER 2025-01-12 16:09 | Emergency (ER) | payer BC, MEDICAID ==
[~2025-01-12] VITALS: Ht 157.5 cm; Wt 72.8 kg
[2025-01-12 16:15] VITALS: TEMP 98.4
[2025-01-12 16:39] LABS: LEUKOCYTE ESTERASE ,URINE NEGATIVE (Neg); NITRITES, URINE NEGATIVE (Neg); OCCULT BLOOD,URINE NEGATIVE (Neg)
[2025-01-12 16:42] LABS: UA COLLECTION TYPE CLN CATCH MIDSTREAM
[2025-01-12 16:46] LABS: MEAN PLATELET VOLUME 9.1 FL (7.4-10.4); RED CELL DISTRIBUTION WIDTH 16.0 % (11.5-14.5)
[2025-01-12 17:01] LABS: CREATININE 1.11 MG/DL (0.40-0.90); TOTAL CARBON DIOXIDE 25.6 MMOL/L (24-32); eCRCL 35 ML/MIN; eGFR 48 ML/MIN
--- NOTE | 2025-01-12 17:23 | Physician Documentation ---
History of Present Illness Chief Complaint: Abdominal Pain Stated Complaint: ABDOMINAL PAIN Time Seen by MD: 16:26 Primary Medical Doctor: Scottie Source: patient (8), family Mode of Arrival: POV, Ambulatory HPI Patient comes in for evaluation of abdominal pain, sent in by her PMD Dr. Rubin. She reports three weeks of pain in the epigastrium which has been constant, although waxing and waning. She has noticed it is worse with p.o. intake. She has had no vomiting or fever, but for the last couple of days has had a couple of loose stools. She has no urinary complaints, no shortness of breath, no chest pain. She has a history of hiatal hernia. She has a history of lung cancer, and underwent a robotic thoracoscopic RUL anterior segmentectomy with no dissection on November [address] Coronel, has been told that she does not need further treatment at the moment, however she recently had two lesions noted in her C-spine, and is awaiting MRI soon. Medication Reconciliation Allergies: Coded Allergies: propoxyphene HCl (Verified Allergy, Intermediate, DIZZY, SLEEPY, 07/19/24) ibuprofen (Verified Allergy, Unknown, 07/19/24) Scheduled Amitriptyline Hcl (Amitriptyline Hcl), 1 TAB PO BID, (Reported) Atorvastatin Calcium (Atorvastatin Calcium), 1 TAB PO HS, (Reported) Calcium Carbonate/Vitamin D3 (Calcium + D 600 Mg Tablet), 1 TAB PO DAILY, (Reported) Fluoxetine Hcl (Fluoxetine Hcl), 1 CAP PO DAILY, (Reported) Hydrocodone Bit/Acetaminophen (Hydrocodon-Acetaminoph 7.5-325), 1 TAB PO Q8H, (Reported) Omeprazole (Omeprazole), 1 CAP PO DAILY, (Reported) Scheduled PRN Umeclidinium Brm/Vilanterol Tr (Anoro Ellipta 62.5-25 Mcg INH), 1 PUFFS PO TID PRN for SOB or wheezing, (Reported) Past Medical History Past Medical History: CVA/TIA/Stroke, Migraine, High Cholesterol, Hypertension, COPD, *GI/HEPATOBILIARY* (Hiatal hernia), Renal Disease, Arthritis, Chronic Back Pain, *CANCER* (Renal CA), Lung Cancer Past Surgical History: appendectomy, , hysterectomy, orthopedic surgeries, other Other Past Surgical History: Single kidney Smoking Status: Current every day smoker Alcohol Use: None Drug Use: none Lives with: Spouse Lives In: Home Occupation: retired Review of Systems All Other Systems at this time: Reviewed and Negative Physical Exam Vital Signs: Temperature: 98.4, Source: Oral, Heart Rate: 68, Respiratory Rate: 16, BP: 133/74, Pulse Oximetry: 98, Weight: 72.800 Oxygen Flow Rate: 0 Physical Exam General: Pt is awake, alert, oriented x4 in no acute distress and well appearing. Head: Normocephalic and atraumatic. Eyes: Conjunctiva normal. ENT: Mucous membranes moist. Neck: Supple. Chest: Clear to auscultation bilaterally, without rales, rhonchi, or wheezes. There is no accessory muscle use or retractions. Cardiac: Regular rate and rhythm without murmurs, gallops or rubs. Palpation of the chest wall, over the lower sternum and along the medial part of the costal m argin bilaterally, reproduces her pain. There is no bony crepitus or subcutaneous air noted. Abd: Soft, nondistended, significantly tender in the epiastrium, with normoactive bowel sounds. No guarding or rebound. Extremities: Within normal limits without cyanosis, clubbing, or edema. Skin: [place], warm and dry with no significant rash appreciated. Neuro: Cranial nerves II-XII grossly intact. The gait is normal. Progress Results/Orders Results/Orders Completed Orders - ROCIO DAVIS MD Urinalysis, Cult If Indicated (01/12/25 16:19) Cbc/Diff (01/12/25 16:19) BMP (01/12/25 16:19) Lipase (01/12/25 16:19) CMP (01/12/25 16:19) Vital Signs 01/12/25 01/12/25 01/12/25 16:15 17:00 17:11 Temp 98.4 Pulse 76 68 Resp 16 16 B/P (MAP) 146/88 133/74 (93) Pulse Ox 98 98 O2 Flow Rate 0 0 Laboratory Tests Test 01/12/25 16:25 01/12/25 16:36 Urine Specimen Description Cln catch midstream Urine Color Straw Urine Clarity Clear Urine pH 6.0 Urine Specific [place] <=1.005 Urine Protein Negative Urine Glucose (UA) Negative Urine Ketones Negative Urine Occult Blood Negative Urine Nitrite Negative Urine Bilirubin Negative Urine Urobilinogen 0.2 Urine Leukocyte Esterase Negative Urine Culture Indicated Not ind Volume Urine Centrifuged 10 ml Urine Comment White Blood Count 5.0 Red Blood Count 4.10 L Hemoglobin 11.0 L Hematocrit 33.5 L Mean Corpuscular Volume 81.8 Mean Corpuscular Hemoglobin 26.8 L Mean Corpuscular Hemoglobin Concent 32.7 L Red Cell Distribution Width 16.0 H Platelet Count 230 Mean Platelet Volume 9.1 Neutrophils (%) (Auto) 50.1 Lymphocytes (%) (Auto) 38.5 Monocytes (%) (Auto) 8.0 Eosinophils (%) (Auto) 3.0 Basophils (%) (Auto) 0.4 Neutrophils # (Auto) 2.5 Lymphocytes # (Auto) 1.9 Monocytes # (Auto) 0.4 Eosinophils # (Auto) 0.2 Basophils # (Auto) 0.0 CBC Comment Sodium Level 138 Potassium Level 4.1 Chloride Level 103 Carbon Dioxide Level 25.6 Anion Gap 9 Blood Urea Nitrogen 10 Creatinine 1.11 H Estimated GFR/1.73 m2 48 BUN/Creatinine Ratio 9.0 L Glucose Level 92 Calcium Level 8.5 Total Bilirubin 0.3 Aspartate Amino Transf (AST/SGOT) 16 Alanine Aminotransferase (ALT/SGPT) 13 Alkaline Phosphatase 81 Total Protein 7.1 Albumin 3.3 L Globulin 3.8 Albumin/Globulin Ratio 0.9 L Lipase 35 Chemistry Comments Medical Decision Making Additional information obtaine: N/A Findings 74 year old female with epigastric pain, signed out to me by Dr. Davis with plan to follow up on CT scan, which was interpreted by me and demonstrates a hiatal hernia but no new metastases or other concerning findings. Counseled, reviewed results with patient, has follow up with additional imaging for other concerns. Return precautions discussed. Differential Dx:Considerations: Other Additional Comments Ddx = metastatic cancer, esophagitis, hiatal hernia, pancreatitis, gallbladder pathology, liver pathology, GERD, dyspepsia Departure Disposition: HOME / SELF CARE / HOMELESS Impression: Primary Impression: Hiatal hernia Condition: Stable Discharge Instructions: Hiatal Hernia Referrals: NO PRIMARY CARE PROVIDER (PCP) Education Educated: Patient Educated regarding: diagnosis, treatment, prognosis, need for follow up Signature Scribe Signature: . Attestation: . ROCIO DAVIS MD Jan 12, 2025 17:23 MAGDIEL YUN MD Jan 12, 2025 18:12
--- NOTE | 2025-01-12 18:02 | RADIOLOGY REPORT ---
Exam: CT CT ABDOMEN PELVIS History: Upper abdominal pain Comparison Study: CT CT ABDOMEN PELVIS on DOS: 07/19/24 Technique: Multidetector spiral CT of the abdomen was performed from lung bases to pubic symphysis. Imaging was performed without IV contrast. Axial, coronal and sagittal multiplanar reformats were obtained from the axial data set by the technologist. Radiation Dose : 1. Abdomen/Pelvis: CTDIvol 20.2 mGy, DLP 1113 mGy*cm. Findings: Evaluation of solid organs is limited due to lack of intravenous contrast use. Lung Bases: No acute or significant lung base finding. Normal heart size. No pleural or pericardial effusion. Liver: The liver is normal in size. No focal lesions. Gallbladder and Biliary Tree: Unremarkable Spleen: Unremarkable Pancreas: The pancreas is grossly normal in appearance. Adrenal Glands: Unremarkable Kidneys: Status post right nephrectomy. No left-sided hydronephrosis. Bladder: Grossly unremarkable for degree of distention. Bowel: Moderate hiatal hernia. Small bowel and colon are normal in caliber and distribution. The appendix is not visualized; however, no secondary findings of acute appendicitis identified. Ascites: Absent Lymphadenopathy: No mesenteric, retroperitoneal or periportal lymphadenopathy. Abdominal Wall and Mesentery: Unremarkable. Vasculature: The visualized abdominal aorta is normal in size and caliber. Evaluation of abdominal and pelvic vessels is limited due to lack of intravenous contrast. Pelvic Organs: Unremarkable Musculoskeletal: No aggressive focal bony lesions, acute fractures or dislocation. Surgical fixation hardware seen in the lumbar spine. IMPRESSION: 1. No acute abdominal or pelvic findings. 2. Moderate hiatal hernia. Radiation optimization: All CT scans at this facility use at least one of these dose optimization techniques: automated exposure control mA and/or kV adjustment per patient size (includes targeted exams where dose is matched to clinical indication) or iterative reconstruction.
[2025-01-12 18:13] VITALS: BP 134/76; PULSE 74; RESP 16; O2SAT 98
== END 2025-01-12 18:16 | disposition home or self-care (01) ==
LOC: ER 16:10
DX: K44.9 Diaphragmatic hernia without obstruction or gangrene (principal); J44.9 Chronic obstructive pulmonary disease, unspecified; I10 Essential (primary) hypertension; G89.29 Other chronic pain; E78.00 Pure hypercholesterolemia, unspecified; F17.200 Nicotine dependence, unspecified, uncomplicated; M19.90 Unspecified osteoarthritis, unspecified site; G43.909 Migraine, unspecified, not intractable, without status migrainosus; Z86.73 Personal history of transient ischemic attack (TIA), and cerebral infarction without residual deficits; Z88.6 Allergy status to analgesic agent; Z88.8 Allergy status to other drugs, medicaments and biological substances; Z90.49 Acquired absence of other specified parts of digestive tract; Z90.710 Acquired absence of both cervix and uterus; Z90.10 Acquired absence of unspecified breast and nipple; Z85.528 Personal history of other malignant neoplasm of kidney; Z85.118 Personal history of other malignant neoplasm of bronchus and lung; Z79.899 Other long term (current) drug therapy
CPT/HCPCS: 36415; 74176; 80053; 81003; 83690; 85025; 99284

== ENCOUNTER 2025-01-23 11:20 | Outpatient (CLI) | payer BC, MEDICAID ==
[2025-01-23 12:27] LABS: CREATININE 1.20 MG/DL (0.40-0.90); TOTAL CARBON DIOXIDE 29.6 MMOL/L (24-32); eGFR 44 ML/MIN
== END 2025-01-23 23:59 | disposition home or self-care (01) ==
LOC: LAB 11:20
PROVIDERS: ATTEND Student in an Organized Health Care Education/Training Program
DX: C34.11 Malignant neoplasm of upper lobe, right bronchus or lung (principal)
CPT/HCPCS: 36415; 80053

== ENCOUNTER 2025-01-27 09:38 | Outpatient (CLI) | payer BC, MEDICAID ==
[2025-01-27] MEDS ORDERED: GADOTERATE MEGLUMINE 7.5 MMOL/15 ML VIAL IV ONE (17:17)
--- NOTE | 2025-01-27 21:22 | RADIOLOGY REPORT ---
EXAM: MR MRI C SPINE INDICATION: MALIGNANT NEOPLASM OF UPPER LOBE, RIGHT BRONCHUS OR LUNG TECHNIQUE: Multiplanar, multisequence imaging of the cervical spine with and without contrast. COMPARISON: MR MRI C SPINE on DOS: 12/19/24 FINDINGS: [ANATOMY]: Cervical lordosis is maintained. [BONES]: The vertebral bodies are normal in height, alignment, and marrow signal. [CERVICAL CORD]: The cervical cord is normal in signal and morphology. No abnormal enhancement [DISCS]: Diffuse disc desiccation. mild intervertebral disc height loss of the cervical spine. Circumferential disc bulges throughout the cervical spine. [FACETS]: Unremarkable [OTHER]: There is no prevertebral soft tissue swelling. The visualized paraspinal soft tissues are normal. [C2-C3]: Trace ligamentum flavum buckling. [C3-C4]: Trace disc bulge [C4-C5]: Trace disc bulge with bilateral inferior foraminal extension with uncovertebral spurring contributing to mild left foraminal narrowing [C5-C6]: Trace disc bulge. Trace ligamentum flavum buckling. Question left asymmetric foraminal narrowing. [C6-C7]: Unremarkable. [C7-T1]: Unremarkable. IMPRESSION: 1. No MR evidence of metastatic disease. 2. Multilevel degenerative change of the cervical spine with question left asymmetric foraminal narrowing at C5-6.
== END 2025-01-27 23:59 | disposition home or self-care (01) ==
LOC: MRI 09:38
PROVIDERS: ATTEND Physician Assistant Medical
DX: M50.10 Cervical disc disorder with radiculopathy, unspecified cervical region (principal); C34.11 Malignant neoplasm of upper lobe, right bronchus or lung; M47.22 Other spondylosis with radiculopathy, cervical region; M48.02 Spinal stenosis, cervical region
CPT/HCPCS: 72156; A9575

== ENCOUNTER 2025-02-27 08:24 | Outpatient (CLI) | payer BC, MEDICAID ==
--- NOTE | 2025-02-27 09:47 | RADIOLOGY REPORT ---
INDICATION: RIGHT UPPER QUADRANT PAIN TECHNIQUE: Multiple real-time sonographic images of the abdomen were obtained. COMPARISON: CT CT ABDOMEN PELVIS on DOS: 01/12/25, CT CT ABDOMEN PELVIS on DOS: 07/19/24 FINDINGS: Liver is homogenous in echogenicity. The liver measures 12 cm. No intrahepatic biliary ductal dilatation is noted. The gallbladder wall measures 0.2 cm and is unremarkable. No gallstones or gallbladder sludge. No pericholecystic fluid or edema. Gallbladder polyp measures 0.2 cm. The common duct measures 0.2 cm and is unremarkable. Right kidney is surgically absent. The left kidney measures 10.1 cm. No hydronephrosis. The spleen measures 9.3 cm, within normal limits. The echogenicity is within normal limits. The pancreas is not well visualized due to obscuration from bowel gas. The visualized portions of the IVC and aorta are grossly unremarkable. IMPRESSION: 1. Gallbladder polyp measures 0.2 cm. 2. Right nephrectomy. FOLLOW UP RECOMMENDATIONS: Low-risk polyps (pedunculated with a thick or wide stalk, or sessile): < 6 mm: no follow-up 7-9 mm follow-up ultrasound at 12 months 10-14 mm: follow-up ultrasound at 6, 12, 24, and 36 months vs surgical consult > 15 mm: surgical consult Mell A, Rosangela C, Kerrie J et al. Management of Incidentally Detected Gallbladder Polyps: Society of Radiologists in Ultrasound Consensus Conference Recommendations. Radiology. 2021;:[id number].
== END 2025-02-27 23:59 | disposition home or self-care (01) ==
LOC: RAD 08:24
PROVIDERS: ATTEND Family Medicine
DX: K82.4 Cholesterolosis of gallbladder (principal); R10.11 Right upper quadrant pain; Z90.5 Acquired absence of kidney
CPT/HCPCS: 76700

== ENCOUNTER 2025-03-19 09:06 | Outpatient (CLI) | payer BC, MEDICAID ==
--- NOTE | 2025-03-19 11:18 | RADIOLOGY REPORT ---
[id number] MR MRCP Attending Name: JERRI QUIÑONES COMPARISON: Ultrasound 02/27/2025, CT scan 01/12/2025 INDICATION: EPIGASTRIC PAIN, RUQ PAIN TECHNIQUE: MRCP was performed without the use of intravenous contrast using a MRI imaging system. Three-dimensional MRCP was performed using maximum intensity projection reconstruction on an independent workstation under concurrent supervision. FINDINGS: Visualized lower thorax: Limited imaging of the thorax demonstrates no suspicious pleural or parenchymal disease. Liver: Normal in size. Hepatic steatosis. Several subcentimeter T2 hyperintense and T1 hypointense lesions noted that are incompletely evaluated in this exam but possibly cysts. Gallbladder: No evidence of cholelithiasis or gallbladder wall thickening. Biliary system: There is no intrahepatic dilatation. The common bile duct measures 7-8 mm in caliber, within normal limits for patient's age. No filling defect to suggest choledocholithiasis. Spleen: Normal in morphology and signal intensity. Pancreas: Normal in morphology and signal intensity. Adrenal glands: Normal in morphology and signal intensity. Kidneys: The RIGHT KIDNEY is absent. The left kidney is normal in size and appearance. No hydronephrosis . Several subcentimeter T2 hyperintense and T1 hypointense lesions are seen in the left kidney that are incompletely evaluated on this unenhanced study. Urinary tract: The included ureters, as visualized, are normal in course and caliber. GI tract: Moderate-sized sliding hiatal hernia. The included portions of the bowel are within normal limits. Lymph nodes: No enlarged lymph nodes. Peritoneum: No ascites. Musculoskeletal: The bone marrow signal intensity is within normal limits. Orthopedic hardware noted in the lumbar spine. There is levoscoliosis of the thoracolumbar junction. IMPRESSION: 1. No intra or extra hepatic biliary ductal dilatation. No choledocholithiasis. 2. Grossly stable subcentimeter hepatic lesions that are incompletely evaluated on this unenhanced study but most likely cysts. Day appeared hypodense with fluid attenuation in the prior CT scan. Recommend attention on follow-up. 3. The right kidney is surgically absent. No residual / recurrent lesion noted in this unenhanced study. 4. Several T2 hyperintense left renal lesions, too small to characterize in this unenhanced study. These can be better evaluated by ultrasound. 5. Moderate-sized sliding hiatal hernia.
== END 2025-03-19 23:59 | disposition home or self-care (01) ==
LOC: MRI02 09:06
PROVIDERS: ATTEND Family Medicine
DX: K76.0 Fatty (change of) liver, not elsewhere classified (principal); R10.13 Epigastric pain; R10.11 Right upper quadrant pain; Z90.5 Acquired absence of kidney; K44.9 Diaphragmatic hernia without obstruction or gangrene; K76.9 Liver disease, unspecified
CPT/HCPCS: 74181